=== PATIENT | male | born 1960 | race Caucasian/White ===

== ENCOUNTER 2017-04-27 09:23 | Emergency (ER) | payer BC ==
[~2017-04-27] VITALS: Ht 167.6 cm; Wt 84.5 kg
[2017-04-27 09:26] VITALS: Ht 167.6 cm; Wt 84.5 kg
[2017-04-27] MEDS ORDERED: ALBUTEROL 0.083% (NEB) 2.5 MG/3 ML AMP HHN STA (10:17)
[2017-04-27] MEDS ORDERED: IPRATROPIUM (NEB) 0.5 MG/2.5 ML AMP HHN ONE (10:30)
--- NOTE | 2017-04-27 10:49 | ERD ---
ER Documentation Chief Complaint Chief Complaint cough x 5 days with chest congestion x 2 days HPI 56-year-old male presents emergency department for cough for 5 days and congestion for 2 days. Denies headache, dizziness, neck pain, throat pain, difficulty swallowing, shoulder pain, chest pain, back pain, difficulty breathing when lying flat, abdominal pain, nausea, vomiting, constipation, diarrhea, urinary symptoms, trauma, injury, falls, recent long travel, recent travel, recent exposure to any illness, recent antibiotic use in the last 3 months, fever, chills. ROS All systems reviewed and are negative except as per history of present illness. Medications Home Meds Active Scripts Albuterol Sulfate* (Proair HFA*) 8.5 Gm Hfa.aer.ad, 2 PUFF INH Q4 Y for SHORTNESS OF BREATH, #1 INHALER Prov:GREGTIFFANIE CRAWFORD 04/27/17 Azithromycin* (Zithromax*) 250 Mg Tablet, 250 MG PO .ZPACK DIRECTED, #6 TAB TAKE 500 MG (2 TABS) THE FIRST DAY THEN 250 MG (1 TAB) DAYS 2-5 Prov:GREGTIFFANIE CARWFORD 04/27/17 Allergies Allergies: Coded Allergies: No Known Drug Allergies (Verified Allergy, Unknown, 04/27/17) PMhx/Soc History of Surgery: No Anesthesia Reaction: No Hx Neurological Disorder: No Hx Respiratory Disorders: No Hx Cardiac Disorders: Yes (HTN, high cholesterol) Hx Psychiatric Problems: No Hx Miscellaneous Medical Probl: Yes (DM) Hx Alcohol Use: No Hx Substance Use: No Hx Tobacco Use: No Smoking Status: Never smoker Physical Exam Vitals Vital Signs Date Time Temp Pulse Resp B/P Pulse Ox O2 Delivery O2 Flow Rate FiO2 04/27/17 11:53 87 18 132/75 98 04/27/17 10:30 87 17 96 21 04/27/17 09:26 98.2 87 18 154/84 97 Physical Exam Const: Well-appearing. Head: Atraumatic Eyes: Normal Conjunctiva ENT: Normal External Ears, Nose and Mouth. Neck: Full range of motion..~ No meningismus. Resp: Mild wheezing bilaterally. Cardio: Regular rate and rhythm, no murmurs Abd: Soft, non tender, non distended. Normal bowel sounds Skin: No petechiae or rashes Back: No midline or flank tenderness Ext: No cyanosis, or edema Neur: Awake and alert Psych: Normal Mood and Affect Results 24 hrs Current Medications Medications (Trade) Dose Ordered Sig/Bridgett Route PRN Reason Start Time Stop Time Status Last Admin Dose Admin Albuterol (Proventil 0.083% (Neb)) 5 mg ONCE STAT N 04/27/17 10:17 04/27/17 10:18 DC 04/27/17 10:29 Ipratropium [place] (Atrovent 0.02% (Neb)) 0.5 mg ONCE ONCE N 04/27/17 10:30 04/27/17 10:31 DC 04/27/17 10:29 Procedures/MDM I have low suspicion for pneumonia given the vital signs are stable, and the patient is well-appearing. I have low suspicion for sepsis given patient's vital signs are stable and patient is well-appearing. I have Llw suspicion for acute myocardial infarction and acute coronary syndrome given that the patient is no chest pain, shoulder pain, arm numbness, nausea, vomiting, back pain. Treatment: Albuterol and Atrovent breathing treatment. Reevaluation: Respirations even and unlabored. Lung sounds are clear to auscultation. Patient stated that he feels much better this time. X-ray of the chest: No evidence for active cardiopulmonary disease. Final diagnosis: Bronchitis. Prescription: Azithromycin. Pro-air. Follow-up with PCP in the next 3-4 days. Come back here in the emergency department for any new symptoms or any worsening of symptoms. All questions and concerns are answered. Patient and family member verbalized understanding and agreed with the plan of care. Hemodynamically stable on discharge. Departure Diagnosis: Primary Impression: Bronchitis Condition: Stable Additional Instructions: Follow-up with PCP in the next 3-4 days. Come back here in the emergency department for any new symptoms or any worsening of symptoms. All questions and concerns are answered. Patient and family member verbalized understanding and agreed with the plan of care. TIFFANIE LYN Apr 27, 2017 10:49
--- NOTE | 2017-04-27 11:03 | RADRPT ---
PROCEDURE: XR Chest. CLINICAL INDICATION: Cough TECHNIQUE: Single AP portable chest. COMPARISON: 06/13/2014 Chest x-ray FINDINGS: The cardiomediastinal silhouette is within normal limits of size. The lungs are clear without pleur al effusion or focal consolidation. No pneumothorax. The osseous structures and soft tissues are unr emarkable. IMPRESSION: 1. No evidence for active cardiopulmonary disease. RPTAT:AAJJ Linda Hogan Physician Date Time Electronically viewed and signed by Linda Hogan Physician on 04/27/2017 11:03 BRANDIE/
[2017-04-27] MEDS ORDERED: AZIT250T94 PO (11:45)
[2017-04-27] MEDS ORDERED: ALBU8.5H3 INH (11:45)
[2017-04-27 11:53] VITALS: BP 132/75; PULSE 87; RESP 18
== END 2017-04-27 11:56 | disposition home or self-care (01) ==
LOC: FTE 09:23
DX: J20.9 Acute bronchitis, unspecified (principal); E11.9 Type 2 diabetes mellitus without complications; I10 Essential (primary) hypertension
CPT/HCPCS: 71020; 94664; Z7502; Z7610

== ENCOUNTER 2017-05-20 09:35 | Emergency (ER) | END 2017-05-20 15:01 | disposition left against medical advice (07) ==

== ENCOUNTER 2018-11-28 06:14 | Emergency (ER) | payer BC ==
[~2018-11-28] VITALS: Ht 165.1 cm; Wt 85.0 kg
[~2018-11-28 06:14] MED LIST: ALBU8.5H8 INH; AZIT250T PO
[2018-11-28 06:21] VITALS: Ht 165.1 cm; Wt 85.0 kg
[2018-11-28] MEDS ORDERED: ONDANSETRON 4 MG INJ IV STA (06:32)
[2018-11-28] MEDS ORDERED: SOD CHLORIDE 0.9% 1,000 ML IV STA (06:32)
[2018-11-28] MEDS ORDERED: MECLIZINE 12.5 MG TAB PO ONE (07:00)
--- NOTE | 2018-11-28 07:44 | ERD ---
ER Documentation Chief Complaint Chief Complaint dizziness since last night, no headache, no cp, no n/v HPI This is a 58-year-old male with a past medical history of hypertension that presents to the emergency department complaining of dizziness. The patient indicates that the dizziness began at 2 AM this morning roughly 4 hours prior to arrival. The patient states that the dizziness was a spinning-like sensation. He does state he has a mild bandlike headache. He states this is not the worst headache of his life. He has no chest pain. He has no shortness of breath. He is felt nauseous but has not experienced any emesis. He did indicate he had a similar episode several years prior to arrival. The vertigo symptom is worse when the patient is standing and leaning forward and better when he lies supine. ROS All systems reviewed and are negative except as per history of present illness. Medications Home Meds Active Scripts Albuterol Sulfate* (Proair HFA*) 8.5 Gm Hfa.aer.ad, 2 PUFF INH Q4 PRN for SHORTNESS OF BREATH, #1 INHALER Prov:TIFFANIE LYN 04/27/17 Azithromycin* (Zithromax*) 250 Mg Tablet, 250 MG PO .ZPACK DIRECTED, #6 TAB TAKE 500 MG (2 TABS) THE FIRST DAY THEN 250 MG (1 TAB) DAYS 2-5 Prov:TIFFANIE LYN 04/27/17 Allergies Allergies: Coded Allergies: No Known Drug Allergies (Verified Allergy, Unknown, 04/27/17) PMhx/Soc Medical and Surgical Hx: pt denies Surgical Hx History of Surgery: No Anesthesia Reaction: No Hx Neurological Disorder: No Hx Respiratory Disorders: No Hx Cardiac Disorders: Yes (htn) Hx Psychiatric Problems: No Hx Miscellaneous Medical Probl: Yes (DM) Hx Alcohol Use: No Hx Substance Use: No Hx Tobacco Use: No Physical Exam Vitals Vital Signs Date Temp Pulse Resp B/P (MAP) Pulse Ox O2 O2 Flow FiO2 Time Delivery Rate 11/28/18 97.3 82 17 167/87 96 06:21 (113) Physical Exam Constitutional:Well-developed. Well-nourished. HEENT:Normocephalic. Atraumatic.Pupils were equal round reactive to light. Moist mucous membranes.No tonsillar exudates. Neck: No nuchal rigidity. No lymphadenopathy. No posterior cervical spine tenderness or step-offs. Respiratory: Not using accessory muscles of respiration.Lungs were clear to auscultation bilaterally. No rhonchi. No rales. No wheezing. Cardiovascular: Regular rate regular rhythm.No murmurs. No rubs were appreciated.S1, S2 normal. Distal pulses are palpable 2+ bilaterally. GI: Abdomen was soft. Nontender. Non Distended. No pulsatile abdominal masses or bruits. No rebound. No guarding. Bowel sounds were present and normal. Muscle skeletal: Full range of motion of both the upper and lower extremities bilaterally.Normal muscle tone.No assymetrical calf tenderness or swelling. Skin: No petechia, no purpura. No lesions on the palms or the soles of the feet. No maculopapular rash. NEURO: Patient was alert, awake, orientated x3.No facial droop. Gait observed and normal with no ataxia.Speech had regular rate and rhythm. No focal neurological deficits. Peripheral fatigable nystagmus Result Diagram: 11/28/18 0647 11/28/18 0647 Results 24 hrs Laboratory Tests Test 11/28/18 06:47 White Blood Count 7.5 10^3/ul Red Blood Count 5.31 10^6/ul Hemoglobin 16.1 g/dl Hematocrit 48.4 % Mean Corpuscular Volume 91.1 fl Mean Corpuscular Hemoglobin 30.3 pg Mean Corpuscular Hemoglobin Concent 33.3 g/dl Red Cell Distribution Width 13.2 % Platelet Count 134 10^3/UL Mean Platelet Volume 13.2 fl Immature Granulocytes % 0.400 % Neutrophils % 72.5 % Lymphocytes % 16.4 % Monocytes % 8.3 % Eosinophils % 1.6 % Basophils % 0.8 % Nucleated Red Blood Cells % 0.0 /100WBC Immature Granulocytes # 0.030 10^3/ul Neutrophils # 5.4 10^3/ul Lymphocytes # 1.2 10^3/ul Monocytes # 0.6 10^3/ul Eosinophils # 0.1 10^3/ul Basophils # 0.1 10^3/ul Nucleated Red Blood Cells # 0.0 10^3/ul Prothrombin Time 12.4 Sec Prothrombin Time Ratio 1.0 INR International Normalized Ratio 0.91 Activated Partial Thromboplast Time 25.5 Sec Sodium Level 139 mmol/L Potassium Level 4.1 mmol/L Chloride Level 102 mmol/L Carbon Dioxide Level 27 mmol/L Anion Gap 10 Blood Urea Nitrogen 28 mg/dl Creatinine 0.79 mg/dl Est Glomerular Filtrat Rate mL/min > 60 mL/min Glucose Level 286 mg/dl Calcium Level 9.7 mg/dl Total Bilirubin 0.4 mg/dl Direct Bilirubin 0.00 mg/dl Indirect Bilirubin 0.4 mg/dl Aspartate Amino Transf (AST/SGOT) 32 IU/L Alanine Aminotransferase (ALT/SGPT) 42 IU/L Alkaline Phosphatase 75 IU/L Troponin I 0.014 ng/ml Total Protein 7.5 g/dl Albumin 4.3 g/dl Globulin 3.20 g/dl Albumin/Globulin Ratio 1.34 Current Medications Medications Dose Sig/Bridgett Start Time Status Last (Trade) Ordered Route PRN Stop Time Admin Dose Reason Admin Sodium 1,000 ml @ Q1H STAT 11/28/18 DC 11/28/18 Chloride 1,000 mls/hr IV 06:32 06:49 11/28/18 07:31 Ondansetron 4 mg ONCE STAT 11/28/18 DC 11/28/18 HCl (Zofran IV 06:32 06:48 Inj) 11/28/18 06:35 Meclizine 25 mg ONCE ONCE 11/28/18 DC 11/28/18 HCl PO 07:00 06:48 (Antivert) 11/28/18 07:01 Procedures/MDM This patient was seen and evaluated by myself. The patient presented to the emergency department complaining of dizziness. My differential diagnosis included but was not limited to hypovolemia, myocardial infarction, pulmonary embolism, hypoglycemia, hypoxia, anemia, vasovagal episode, hypothyroidism, anxiety, peripheral or central vertigo. The patient was placed on a equipment monitor phototypesetting, continuous pulse oximetry and IV access established by nursing staff. The patient received IV fluids and intravenous Zofran as he was feeling nauseous and also to treat the hyperglycemia without ketosis. He was also given Antivert to treat suspected peripheral vertigo. 12 Lead EKG tracing ordered and reviewed by myself showed: Normal sinus rhythm of 78 bpm and no arrhythmia. CA interval normal. QRS duration normal. No ST segment elevation No ST segment depression. No changes consistent with acute ischemia. I did obtain a CT scan the patient's head as his symptoms have not improved with the above medications. This was reviewed by the radiologist myself and indicate the followin. Near complete opacification of the left sided ethmoid sinuses, suggesting inflammatory sinusitis. Maxillary sinus is excluded from the field of view. 2. No additional acute intracranial abnormality. Negative for hemorrhage. 3. Cavernous carotid atherosclerosis, mild chronic small vessel ischemic changes. At this time the patient will be sent home with a prescription of antibiotics. He will be given Antivert prescription. The patient was discharged home in fair condition. They were instructed to return to the emergency department at any time if there was any worsening of their condition. The patient stated they would follow up with their PCP in the next 24-48 hours to initiate a suitable medication regimen under the care of their PCP as well as to allow their PCP to monitor any drug reactions. The patient was discharged home with prescriptions after they gave informed consent to the new medication. They were also fully informed by myself on the adverse effects and adverse drug interactions in order to provide adequate safeguards to prevent possible adverse reactions to med ications. Departure Diagnosis: Primary Impression: Peripheral vertigo Laterality: unspecified laterality Qualified Codes: H81.399 - Other peripheral vertigo, unspecified ear Additional Impressions: Sinusitis Sinusitis location: maxillary Chronicity: acute Recurrence: non- recurrent Qualified Codes: J01.00 - Acute maxillary sinusitis, unspecified Hyperglycemia without ketosis Condition: BRIAN Hutchinson MD Nov 28, 2018 07:43
[2018-11-28] MEDS ORDERED: AMOX500C2 PO (08:46)
[2018-11-28] MEDS ORDERED: MECL12.574 PO (08:46)
[2018-11-28 09:03] VITALS: BP 151/85; PULSE 69; RESP 18
== END 2018-11-28 09:12 | disposition home or self-care (01) ==
LOC: FTE 06:14
DX: H81.399 Other peripheral vertigo, unspecified ear (principal); J01.00 Acute maxillary sinusitis, unspecified; E11.65 Type 2 diabetes mellitus with hyperglycemia; I10 Essential (primary) hypertension
CPT/HCPCS: 70450; 80053; 84484; 85025; 85610; 85730; 93005; 96374; 99285; J2405; J7030